=== PATIENT | male | born 1980 | race Caucasian/White ===

== ENCOUNTER 2021-04-17 15:39 | Emergency (ER) | payer SELFPAY ==
--- NOTE | 2021-04-17 15:53 | EDM.PDOC ---
ED HPI GENERAL MEDICAL PROBLEM - General Stated Complaint: DISLOCATED SHOULDER Time Seen by Provider: 04/17/21 15:41 Source of Information: Reports: Patient History Limitations: Reports: No Limitations - History of Present Illness INITIAL COMMENTS - FREE TEXT/NARRATIVE: 41-year-old male presents for left shoulder injury. Patient was skateboarding when he fell and feels like he dislocated his shoulder. He has never dislocated the shoulder before. He has difficulty moving it secondary to pain. He feels something out of place. left shoulder Pain Score (Numeric/FACES): 9 - Related Data Allergies Allergy/AdvReac Type Severity Reaction Status Date / Time No Known Allergies Allergy Verified 04/17/21 16:14 Home Meds: Home Meds . [No Known Home Meds] 04/17/21 [History] ED ROS GENERAL - Review of Systems Review Of Systems: Comprehensive ROS is negative, except as noted in HPI. ED EXAM, GENERAL - Physical Exam Exam: See Below Exam Limited By: No Limitations General Appearance: Alert, WD/WN, No Apparent Distress Ears: Hearing Grossly Normal Throat/Mouth: Normal Voice, No Airway Compromise Head: Atraumatic, Normocephalic Neck: Normal Inspection Respiratory/Chest: No Respiratory Distress, Lungs Clear, Normal Breath Sounds, No Accessory Muscle Use Cardiovascular: Normal Peripheral Pulses, Regular Rate, Rhythm Extremities: Normal Inspection, Other (Preserved pharmacy service associate strength, normal radial pulses bilaterally, tenderness to palpation of the left anterior AC joint) Neurological: Alert Psychiatric: Normal Affect, Normal Mood Skin Exam: Warm, Dry, Intact, Normal Color Lymphatic: No Adenopathy ED GENERAL MEDICAL PROCEDURES - Joint Reduction Left Shoulder Sedation: Conscious Sedation Pre-procedure NV status: Normal Post-procedure NV status: Normal Technique: Traction/Counter Traction Number of Attempts: 1 Post-Reduction Imaging: Acceptably Reduced Joint Reduction Complications: No Course - Vital Signs Last Recorded V/S: Last Vital Signs Temp Pulse 67 04/17/21 16:14 Resp 20 04/17/21 16:14 BP 145/95 H 04/17/21 16:14 Pulse Ox 99 04/17/21 16:14 - Orders/Labs/Meds Orders: Active Orders 24 hr Category Date Time Status Shoulder Comp Lt [CR] Stat Exams 04/17/21 16:46 Ordered Sodium Chloride 0.9% [Normal Saline] 1,000 ml Med 04/17/21 16:24 Active IV .Bolus Saline Lock Insert [OM.PC] Stat Oth 04/17/21 15:57 Ordered Medication Orders Sodium Chloride (Normal Saline) 1,000 mls @ 999 mls/hr IV .Bolus ONE Stop: 04/17/21 17:24 Last Admin: 04/17/21 16:00 Dose: 999 mls/hr Documented by: RONALD Meds: Medications Generic Name Dose Route Start Last Admin Trade Name Freq PRN Reason Stop Dose Admin Sodium Chloride 1,000 mls @ 999 mls/hr 04/17/21 16:24 04/17/21 16:00 Normal Saline IV 04/17/21 17:24 999 mls/hr .Bolus ONE Administration Discontinued Medications Generic Name Dose Route Start Last Admin Trade Name Freq PRN Reason Stop Dose Admin Morphine Sulfate 4 mg 04/17/21 15:57 04/17/21 16:37 Morphine 4 Mg/Ml Syringe IVPUSH 04/17/21 15:58 4 mg ONETIME ONE Administration Propofol 120 mg 04/17/21 16:18 04/17/21 16:42 Propofol 200 Mg/20 Ml Sdv IVPUSH 04/17/21 16:19 100 mg ONETIME ONE Administration Propofol 100 mg 04/17/21 16:47 Propofol 200 Mg/20 Ml Sdv IVPUSH 04/17/21 16:48 ONETIME ONE - Re-Assessments/Exams Free Text/Narrative Re-Assessment/Exam: 04/17/21 16:19 X-ray imaging shows an anterior shoulder location. Will give conscious sedation and relocate the shoulder. 04/17/21 16:58 Much improved alignment on postreduction film. Will discharge with shoulder i mmobilizer and recommend follow-up with orthopedics. Departure - Departure Time of Disposition: 16:58 Disposition: Home, Self-Care 01 Condition: Good Clinical Impression: Shoulder dislocation Qualifiers: Encounter type: initial encounter Laterality: left Qualified Code(s): S43.005A - Unspecified dislocation of left shoulder joint, initial encounter - Discharge Information Instructions: Shoulder Dislocation Referrals: PCP,Not In Area [Primary Care Provider] - Additional Instructions: Please follow-up with orthopedics. [facility] [address], [address] [place] [address] The following information is given to patients seen in the emergency department who are being discharged to home. This information is to outline your options for follow-up care. We provide all patients seen in our emergency department with a follow-up referral. The need for follow-up, as well as the timing and circumstances, are variable depending upon the specifics of your emergency department visit. If you don't have a primary care physician on staff, we will provide you with a referral. We always advise you to contact your personal physician following an emergency department visit to inform them of the circumstance of the visit and for follow-up with them and/or the need for any referrals to a consulting specialist. The emergency department will also refer you to a specialist when appropriate. This referral assures that you have the opportunity for follow-up care with a specialist. All of these measure are taken in an effort to provide you with optimal care, which includes your follow-up. Under all circumstances we always encourage you to contact your private physician who remains a resource for coordinating your care. When calling for follow-up care, please make the office aware that this follow-up is from your recent emergency room visit. If for any reason you are refused follow-up, please contact the [facility] Emergency Department at and asked to speak to the emergency department charge nurse. Please follow up with your primary care physician. If you do not have a primary care physician, see below: [facility] [address] [place] [id number] [id number] [facility] [address] [place] [id number] Sepsis Event Note (ED) - Focused Exam Vital Signs: Vital Signs Pulse Resp BP Pulse Ox 04/17/21 16:14 67 20 145/95 H 99 - My Orders Last 24 Hours: My Active Orders 04/17/21 15:57 Saline Lock Insert [OM.PC] Stat 04/17/21 16:24 Sodium Chloride 0.9% [Normal Saline] 1,000 ml IV .Bolus 04/17/21 16:46 Shoulder Comp Lt [CR] Stat - Assessment/Plan Last 24 Hours: My Active Orders 04/17/21 15:57 Saline Lock Insert [OM.PC] Stat 04/17/21 16:24 Sodium Chloride 0.9% [Normal Saline] 1,000 ml IV .Bolus 04/17/21 16:46 Shoulder Comp Lt [CR] Stat
[2021-04-17] MEDS ORDERED: Morphine 4 MG/ML Syringe IVPUSH ONE (15:57)
[2021-04-17] MEDS ORDERED: Propofol 200 MG/20 ML SDV IVPUSH ONE ×2 (16:18→16:47)
--- NOTE | 2021-04-17 16:18 | CR ---
INDICATION: Shoulder pain, fall, dislocation. TECHNIQUE: Three views of the left shoulder. FINDINGS: There is an anterior dislocation of the left shoulder. No definite fracture. Dictated by Paddy Beauchamp MD @ 04/17/2021 4:17:20 PM (Electronically Signed)
[2021-04-17] MEDS ORDERED: Sodium Chloride 0.9% 1,000 ML IV ONE (16:24)
--- NOTE | 2021-04-17 17:19 | CR ---
Indication: Post reduction Technique: Single view of the left shoulder Comparison: X-rays 04/17/2021 Findings: Normal articulation of the glenohumeral joint with reduction of previous dislocation. Irregularity of the superior lateral humerus probably reflects a Hill-Sachs. Dictated by Kavita Pérez MD @ 04/17/2021 5:18:56 PM (Electronically Signed)
== END 2021-04-17 17:15 | disposition home or self-care (01) ==
LOC: MW.ED 15:39
DX: S43.005A Unspecified dislocation of left shoulder joint, initial encounter (principal); V00.131A Fall from skateboard, initial encounter; Y93.51 Activity, roller skating (inline) and skateboarding
CPT/HCPCS: 23650; 73030; 96374; 99283; J2270; J2704; J7030